=== PATIENT | female | born 1980 | race Caucasian/White ===

== ENCOUNTER 2017-04-23 00:02 | Emergency (ER) | payer OTHER ==
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
[2017-04-23] MEDS ORDERED: MORPHINE SULFATE 4 MG INJ IV ONE (00:18)
[2017-04-23] MEDS ORDERED: TORAdol 30 mg Injection IV ONE (00:18)
[2017-04-23] MEDS ORDERED: BENADRYL 50 MG/ML IV ONE (00:18)
[2017-04-23] MEDS ORDERED: Sodium Chloride 0.9% 1000 ML 1,000 ML IV SCH (00:30)
[2017-04-23] MEDS ORDERED: MORPHINE SULFATE 4 MG INJ ONE (00:34)
[2017-04-23] MEDS ORDERED: TORAdol 30 mg Injection ONE (00:34)
[2017-04-23] MEDS ORDERED: BENADRYL 50 MG/ML ONE (00:34)
[2017-04-23] MEDS ORDERED: Sodium Chloride 0.9% 1000 ML 1,000 ML ONE (00:34)
[2017-04-23 02:14] VITALS: BP 93/48; PULSE 76; O2SAT 96
--- NOTE | 2017-04-23 08:37 | XRAY ---
Indication: Headache and left parietal swelling following fall. Multiple contiguous axial images obtained through the head without contrast. Comparison: October 19, 2015. Again normal appearing brain parenchyma, ventricles, and bony calvarium. Visualized paranasal sinuses and mastoid air cells are pneumatized and clear. Impression: Stable normal CT head without contrast exam. Comment: Preliminary interpretation was made by [facility]. No discrepancy. CT DI 50.00
--- NOTE | 2017-04-23 08:39 | XRAY ---
Indication: Pain following fall. Comparison: June 12, 2016. 2 views of the left lower leg unchanged again demonstrating old distal fibular fracture with intact orthopedic hardware. No new/acute bony, articular, or soft tissue abnormalities.
--- NOTE | 2017-04-23 08:41 | XRAY ---
Indication: Pain following fall. Comparison: None 3 nonweightbearing views of the left foot demonstrates mild osteopenia, medial/lateral tarsal accessory ossicles, tiny posterior heel spur, and partially visualized old distal fibular fracture with orthopedic hardware. No other bony, articular, or soft tissue abnormalities.
== END 2017-04-23 02:14 | disposition home or self-care (01) ==
LOC: ED 00:02
DX: S00.93XA Contusion of unspecified part of head, initial encounter (principal); M25.572 Pain in left ankle and joints of left foot; W22.8XXA Striking against or struck by other objects, initial encounter; Y04.0XXA Assault by unarmed brawl or fight, initial encounter
CPT/HCPCS: 36000; 70450; 73590; 73630; 96360; 96361; 96374; 96375; 99284; J1200; J1885; J2270

== ENCOUNTER 2019-05-18 00:02 | Emergency (ER) | payer OTHER ==
[2019-05-18 00:30] VITALS: O2SAT 97
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
[2019-05-18] MEDS ORDERED: CLEOCIN 150 MG CAPSULE ONE (01:06)
[2019-05-18] MEDS: CLEOCIN 150 MG CAPSULE PO ONE (01:08)
[2019-05-18 01:41] VITALS: BP 99/75; PULSE 90
== END 2019-05-18 01:30 | disposition home or self-care (01) ==
LOC: ED 00:02
DX: M54.6 Pain in thoracic spine (principal); Z96.89 Presence of other specified functional implants; Z98.890 Other specified postprocedural states
CPT/HCPCS: 99283; A9270-GY

== ENCOUNTER 2019-11-23 13:12 | Emergency (ER) | payer OTHER ==
[2019-11-23] MEDS ORDERED: Hydromorphone 1 mg/ml Ampule IM ONE (13:16)
[2019-11-23] MEDS ORDERED: Hydromorphone 1 mg/ml Ampule ONE ×2 (13:18→13:57)
[2019-11-23] MEDS ORDERED: Ativan 2 MG/1 ML VIAL IM ONE (13:39)
[2019-11-23] MEDS ORDERED: Ativan 2 MG/1 ML VIAL IV ONE (13:50)
[2019-11-23] MEDS ORDERED: Ativan 2 MG/1 ML VIAL ONE (13:52)
[2019-11-23] MEDS ORDERED: Hydromorphone 1 mg/ml Ampule IV ONE (13:53)
[2019-11-23 14:34] VITALS: O2SAT 96
[2019-11-23] MEDS ORDERED: SILVADENE 50 GM TP ONE (14:35)
[2019-11-23] MEDS ORDERED: BACIGUENT PACKET ONE (14:42)
--- NOTE | 2019-11-23 14:42 | ERPHSYRPT ---
- History of Present Illness Time Seen by Provider: 11/23/19 13:25 Exam Limitations: no limitations Patient Subjective Stated Complaint: PT states "I was at work and a pot of beef broth fell onto my arm." Triage Nursing Assessment: Pt presented alert and oriented X 3, skin wpd. PT ambulates with her left arm held out and moaning. PT has superficial burn to left arm from elbow to fingers on dorsal side. Physician History: Burned L forearm with hot broth in hospitat kitchen Timing/Duration: today Quality: burning Severity: severe Location: extremities (L forearm small area on abdomen) Possible Causes: no cause identified Allergies/Adverse Reactions: amoxicillin [Amoxicillin] Allergy (Verified 04/23/17 00:04) HIVES azithromycin [From Zithromax Z-Leon] Allergy (Verified 04/23/17 00:04) palpitations, dyspnea cefaclor [From Ceclor] Allergy (Verified 04/23/17 00:04) palpitations, rash, dyspnea Penicillins Allergy (Verified 04/23/17 00:04) Sulfa (Sulfonamide Antibiotics) [Sulfa(Sulfonamide Antibiotics)] Allergy ( Verified 04/23/17 00:04) palpitations, rash, dyspnea Home Medications: Amlodipine Besylate [Norvasc] 5 mg PO DAILY 06/24/15 [History] Duloxetine HCl [Cymbalta] 60 mg PO DAILY 04/23/17 [History] Pregabalin [Lyrica 150Mg] 1 tab PO BID 04/23/17 [History] Hx Tetanus, Diphtheria Vaccination/Date Given: Yes Hx Influenza Vaccination/Date Given: Yes Hx Pneumococcal Vaccination/Date Given: No Immunizations Up to Date: Yes - Review of Systems Constitutional: No Fever, No Chills Eyes: No Symptoms Ears, Nose, & Throat: No Symptoms Respiratory: No Cough, No Dyspnea Cardiac: No Chest Pain, No Edema, No Syncope Abdominal/Gastrointestinal: No Abdominal Pain, No Nausea, No Vomiting, No Diarrhea Genitourinary Symptoms: No Dysuria Musculoskeletal: No Back Pain, No Neck Pain Skin: Other (First degree burn L forearm and small area on abdomen), No Rash Neurological: No Dizziness, No Focal Weakness, No Sensory Changes Psychological: No Symptoms Endocrine: No Symptoms All Other Systems: Reviewed and Negative - Past Medical History Pertinent Past Medical History: Yes Neurological History: Migraines, Other ENT History: No Pertinent History Cardiac History: Hypertension Respiratory History: No Pertinent History Endocrine Medical History: No Pertinent History Musculoskeletal History: No Pertinent History GI Medical History: Gallbladder Disease, Irritable Bowel History: No Pertinent History Psycho-Social History: Anxiety, Depression Female Reproductive Disorders: No Pertinent History Other Medical History: L ankle fracture 2010, L ankle surgery 09/2016, R AC decompression., back pain - Past Surgical History Past Surgical History: Yes Neuro Surgical History: No Pertinent History Cardiac: No Pertinent History Respiratory: No Pertinent History Gastrointestinal: Appendectomy, Cholecystectomy Genitourinary: No Pertinent History Musculoskeletal: Orthopedic Surgery, Other Female Surgical History: Section Other Surgical History: broken left ankle repair with ortho ashley has 9 scew noted. Pt states the AC joint was compressed et she has had part of her collar bone removed due to a work injury in the past. neurostimulator placement 04/21/19 , vertebrae removed, nerves burnt and clipped in left leg. - Social History Smoking Status: Current every day smoker How long have you smoked: years Exposure to second hand smoke: Yes Drug Use: none Patient Lives Alone: No - Female History Hx Last Menstrual Period: 08/22/2019 Hx Now: (un known) - Nursing Vital Signs Nursing Vital Signs: Initial Vital Signs Temperature 98.7 F 11/23/19 13:18 Pulse Rate 104 H 11/23/19 13:18 Respiratory Rate 24 11/23/19 13:18 Blood Pressure 173/107 11/23/19 13:18 O2 Sat by Pulse Oximetry 98 11/23/19 13:18 Pain Scale Pain Intensity 7 - Physical Exam General Appearance: moderate distress, alert Eye Exam: PERRL/EOMI, eyes nml inspection Ears, Nose, Throat Exam: normal ENT inspection, pharynx normal, moist mucous membranes Neck Exam: normal inspection, non-tender, supple, full range of motion Respiratory Exam: normal breath sounds, lungs clear, No respiratory distress Cardiovascular Exam: regular rate/rhythm, normal heart sounds Gastrointestinal/Abdomen Exam: soft, mass, No tenderness Back Exam: normal inspection, normal range of motion, No CVA tenderness, No vertebral tenderness Extremity Exam: normal inspection, normal range of motion Neurologic Exam: alert, oriented x 3, cooperative, normal mood/affect, sensation nml, No motor deficits Skin Exam: other (First degree burn L forearm and small area of abdomen) Lymphatic Exam: No adenopathy SpO2 Interpretation: normal SpO2: 96 O2 Delivery: Room Air - Course Nursing assessment & vital signs reviewed: Yes Ordered Tests: Active Orders 24 hr Category Date Time Status IV Insertion STAT Care 11/23/19 13:50 Active Medication Summary Discontinued Medications Generic Name Dose Route Start Last Admin Trade Name Freq PRN Reason Stop Dose Admin Hydromorphone HCl 1 mg 11/23/19 13:16 11/23/19 13:21 Hydromorphone 1 Mg/Ml Ampule IM 11/23/19 13:17 1 mg STAT ONE Administration Hydromorphone HCl Confirm 11/23/19 13:18 Hydromorphone 1 Mg/Ml Ampule Administered 11/23/19 13:19 Dose 1 mg .ROUTE .STK-MED ONE Hydromorphone HCl 1 mg 11/23/19 13:53 11/23/19 13:58 Hydromorphone 1 Mg/Ml Ampule IV 11/23/19 13:54 1 mg STAT ONE Administration Hydromorphone HCl Confirm 11/23/19 13:57 Hydromorphone 1 Mg/Ml Ampule Administered 11/23/19 13:58 Dose 1 mg .ROUTE .STK-MED ONE Lorazepam 1 mg 11/23/19 13:39 11/23/19 13:51 Ativan 2 Mg/1 Ml Vial IM 11/23/19 13:40 Not Given STAT ONE Lorazepam 1 mg 11/23/19 13:50 11/23/19 13:54 Ativan 2 Mg/1 Ml Vial IV 11/23/19 13:51 1 mg STAT ONE Administration Lorazepam Confirm 11/23/19 13:52 Ativan 2 Mg/1 Ml Vial Administered 11/23/19 13:53 Dose 2 mg .ROUTE .STK-MED ONE - Progress Progress: improved - Departure Departure Disposition: Home Clinical Impression: Partial thickness burn of abdominal wall, Partial thickness burn of forearm Condition: Stable Critical Care Time: No Referrals: BAILEY MARISCAL MD [Primary Care Provider] - Instructions: Skin Fair Prescriptions: Hydrocodone/APAP 10/325 mg [Lexa 10/325 MG Tablet] 1 tab PO Q4H PRN PRN 3 Days #10 tablet MDD 6 PRN Reason: Pain
[2019-11-23] MEDS ORDERED: BACIGUENT PACKET TP ONE (14:46)
[2019-11-23 15:08] VITALS: BP 136/80; PULSE 96
== END 2019-11-23 15:17 | disposition home or self-care (01) ==
LOC: ED 13:12
DX: T21.22XA Burn of second degree of abdominal wall, initial encounter (principal); T22.212A Burn of second degree of left forearm, initial encounter; X12.XXXA Contact with other hot fluids, initial encounter; Y93.G3 Activity, cooking and baking; Y92.9 Unspecified place or not applicable
CPT/HCPCS: 36000; 96372; 96374; 96375; 96376; 99284; J1170; J2060; A9270-GY

== ENCOUNTER 2021-07-05 21:38 | Emergency (ER) | payer BC, OTHER ==
[2012-07-13 08:03] VITALS: BP 112/57
== END 2021-07-05 23:30 | disposition left against medical advice (07) ==
LOC: ED 21:38
DX: Z53.9 Procedure and treatment not carried out, unspecified reason (principal)

== ENCOUNTER 2021-08-17 18:20 | Emergency (ER) | payer OTHER ==
--- NOTE | 2021-08-17 19:54 | ERPHSYRPT ---
- History of Present Illness Time Seen by Provider: 08/17/21 19:54 Source: patient Exam Limitations: no limitations Physician History: This is a 41-year-old white female who has had recurrent ear infections in the past. She has right ear pain that is been present for 2 to 3 weeks. Initially she was on Cipro antibiotic and oral steroids. This did not cure her symptoms and she is on Z-Leon with 1 more day of antibiotic. In the last 2 days her right ear pain was worsening. She has not addressed her symptoms with Dr. Mariscal. She has not seen an research lab assistant. She is only been using [facility] in the last 2 to 3 weeks. Timing/Duration: days Severity: mild ENT Location: ear (R) (To moderate) Prearrival Treatment: over the counter meds, prescription meds Associated Symptoms: ear pain (R) Allergies/Adverse Reactions: amoxicillin [Amoxicillin] Allergy (Verified 08/17/21 19:46) HIVES cefaclor [From Ceclor] Allergy (Verified 08/17/21 19:46) palpitations, rash, dyspnea Penicillins Allergy (Verified 08/17/21 19:46) Sulfa (Sulfonamide Antibiotics) [Sulfa(Sulfonamide Antibiotics)] Allergy (Verified 08/17/21 19:46) palpitations, rash, dyspnea Home Medications: Amlodipine Besylate 5 mg PO DAILY 08/17/21 [History] Azithromycin 250 mg [Zithromax 250 MG TABLET] 250 mg PO DAILY 08/17/21 [History] Gabapentin [Neurontin] 300 mg PO BID 08/17/21 [History] Metformin HCl 500 mg PO HS 08/17/21 [History] Norethindrone-E.estradiol-Iron [Junel Fe 1.5 mg-30 Mcg Tablet] 1 each PO DAILY 08/17/21 [History] Rizatriptan Benzoate [Rizatriptan] 10 mg PO DAILY 08/17/21 [History] Venlafaxine HCl ER 75 mg [Effexor XR 75 MG] 75 mg PO DAILY 08/17/21 [History] Hx Tetanus, Diphtheria Vaccination/Date Given: Yes Hx Influenza Vaccination/Date Given: Yes Hx Pneumococcal Vaccination/Date Given: No Travel Risk - International Travel Have you traveled outside of the country in past 3 weeks: No - Coronavirus Screening Are you exhibiting any of the following symptoms?: No Close contact with a COVID-19 positive Pt in past 14-21 Days: No - Review of Systems Constitutional: No Symptoms Eyes: No Symptoms Ears, Nose, & Throat: Ear Pain (Right) Respiratory: No Symptoms Cardiac: No Symptoms Abdominal/Gastrointestinal: No Symptoms Genitourinary Symptoms: No Symptoms Musculoskeletal: No Symptoms Skin: No Symptoms Neurological: No Symptoms Psychological: No Symptoms Endocrine: No Symptoms Hematologic/Lymphatic: No Symptoms Immunological/Allergic: No Symptoms All Other Systems: Reviewed and Negative - Past Medical History Pertinent Past Medical History: Yes Neurological History: Migraines, Other ENT History: No Pertinent History Cardiac History: Hypertension Respiratory History: No Pertinent History Endocrine Medical History: No Pertinent History Musculoskeletal History: No Pertinent History GI Medical History: Gallbladder Disease, Irritable Bowel History: No Pertinent History Psycho-Social History: Anxiety, Depression Female Reproductive Disorders: No Pertinent History Other Medical History: L ankle fracture 2010, L ankle surgery 09/2016, R AC decompression., back pain - Past Surgical History Past Surgical History: Yes Neuro Surgical History: No Pertinent History Cardiac: No Pertinent History Respiratory: No Pertinent History Gastrointestinal: Appendectomy, Cholecystectomy Genitourinary: No Pertinent History Musculoskeletal: Orthopedic Surgery, Other Female Surgical History: Section Other Surgical History: broken left ankle repair with ortho ashley has 9 scew noted. Pt states the AC joint was compressed et she has had part of her collar bone removed due to a work injury in the past. neurostimulator placement 04/21/19, vertebrae removed, nerves burnt and clipped in left leg. - Social History Smoking Status: Current every day smoker How long have you smoked: years Exposure to second hand smoke: Yes Drug Use: none Patient Lives Alone: No - Nursing Vital Signs Nursing Vital Signs: Initial Vital Signs Temperature 98.6 F 08/17/21 19:46 Pulse Rate 111 H 08/17/21 19:46 Respiratory Rate 22 08/17/21 19:46 Blood Pressure 184/103 08/17/21 19:46 O2 Sat by Pulse Oximetry 97 08/17/21 19:46 Pain Scale Pain Intensity 8 - Physical Exam General Appearance: mild distress, alert, anxiety, obese Eye Exam: bilateral eye: normal inspection, PERRL, EOMI Ear Exam: right ear: tenderness (Right side), bilateral ear: auricle normal, canal normal, TM normal Nasal Exam: normal inspection Throat Exam: normal, pharynx normal Neck Exam: normal inspection, non-tender, supple, full range of motion Cardiovascular/Respiratory Exam: chest non-tender, no respiratory distress Abdominal Exam: non-tender Neurologic Exam: alert, oriented x 3, cooperative, endodontist II-XII nml as tested, normal mood/affect, nml cerebellar function, nml station & gait, sensation nml Skin Exam: normal color, warm, dry SpO2 Interpretation: normal O2 Delivery: Room Air - Course Nursing assessment & vital signs reviewed: Yes Ordered Tests: Medication Summary Discontinued Medications Generic Name Dose Route Start Last Admin Trade Name Philomena PRN Reason Stop Dose Admin Methylprednisolone Sodium 0 mg 08/17/21 20:19 08/17/21 20:36 Succinate 125 mg/ Sterile IM 08/17/21 20:20 125 mg Water 2 ml STAT ONE Administration Methylprednisolone Sodium Succinate Confirm 08/17/21 20:34 Methylprednis Sod Succ 125 Mg/2 Ml Vial Administered 08/17/21 20:35 Dose 125 mg .ROUTE .STK-MED ONE Oxycodone/Acetaminophen 1 tab 08/17/21 20:18 08/17/21 20:36 Oxycodone Hcl/Apap 5 Mg/325 Mg Tablet PO 08/17/21 20:19 1 tab STAT STA Administration Oxycodone/Acetaminophen 2 tab 08/17/21 20:19 08/17/21 20:36 Oxycodone Hcl/Apap 5 Mg/325 Mg Tablet PO 08/17/21 20:20 2 tab SENT HOME W/ PATIENT STA Administration Oxycodone/Acetaminophen Confirm 08/17/21 20:34 Oxycodone Hcl/Apap 5 Mg/325 Mg Tablet Administered 08/17/21 20:35 Dose 3 tab .ROUTE .STK-MED ONE Sterile Water Confirm 08/17/21 20:35 Water For Injection,Sterile 10 Ml Vial Administered 08/17/21 20:36 Dose 10 ml IJ .STK-MED ONE - Progress Progress: improved, pain not gone completely Progress Note: 08/17/21 20:44 Apparently, the patient was upset when talking to the nurse after I evaluated her. Although the patient stated I never called her a drug addict she did say that she felt I hinted at it when I asked her if she was on hydrocodone. On her profile there was 3 separate hydrocodone type medications and I was unsure whether this was updated and that is why I asked her about it. She did not peer or express any frustration or anger when I was in the room. In fact, I told her if I did not think she was in pain I would not have given her Percocet here in the emergency department and take home Percocet medication. 08/17/21 20:46 Medical decision making: This patient's right tympanic membrane does not show any bulging or evidence of redness or infection. The ear canal may be slightly more red on the right than the left. The tympanic membranes on both side are similar. The patient's repeat/second systolic blood pressure was in the 140s. I told her that she should continue her Z-Leon and then follow-up with Dr. Mariscal tomorrow to make arrangements for evaluation by him and possible referral to research lab assistant. I will provide her another round of short course of steroids. Counseled pt/family regarding: diagnosis, need for follow-up - Departure Departure Disposition: Home Clinical Impression: Chronic right ear pain Condition: Stable Critical Care Time: No Referrals: BAILEY MARISCAL MD [Primary Care Provider] - Additional Instructions: Take your medication as prescribed. Call Dr. Mariscal's office tomorrow to make arrange for follow-up appointment with him and possible referral to research lab assistant for further evaluation of your chronic right ear pain. Prescriptions: Prednisone 10 mg [Deltasone 10 mg] 10 mg PO TID #12 tablet
[2021-08-17] MEDS ORDERED: PERCOCET TABLET 5/325MG PO STA ×2 (20:18→20:19)
[2021-08-17] MEDS ORDERED: solu-MEDROL 125 MG, Sterile H2O 10 ml 2 ML IM ONE ×2 (20:19)
[2021-08-17] MEDS ORDERED: PERCOCET TABLET 5/325MG ONE (20:34)
[2021-08-17] MEDS ORDERED: solu-MEDROL ONE (20:34)
[2021-08-17] MEDS ORDERED: Sterile H2O 10 ml IJ ONE (20:35)
[2021-08-17 20:59] VITALS: BP 164/93; PULSE 97; O2SAT 97
== END 2021-08-17 21:05 | disposition home or self-care (01) ==
LOC: ED 18:20
DX: H91.01 Ototoxic hearing loss, right ear (principal)
CPT/HCPCS: 96372; 99283; J2930; A9270-GY

== ENCOUNTER 2023-03-09 20:24 | Emergency (ER) | payer OTHER ==
--- NOTE | 2023-03-09 20:29 | ERPHSYRPT ---
- History of Present Illness Time Seen by Provider: 03/09/23 20:28 Source: patient Exam Limitations: no limitations Physician History: This is a 43-year-old white female patient of Dr. Mariscal who presents with 2-week history of right upper molar dental pain. Over the last 2 weeks she has had her antibiotics changed and recently has an increase in her dosing. However, the patient has a gingival abscess right upper molar. Patient has a dentist appointment on 03/12/2023. Patient is allergic to hydrocodone but has taken Percocet in the past. She is allergic to penicillin and cefaclor. She is currently taking clindamycin. Patient is a daily smoker of cigarettes. Patient has a history of hypertension, diabetes, migraine headaches, peripheral neuropathy and asthma. Timing/Duration: week(s) (2), worse Severity: moderate Modifying Factors: Improves With: nothing Associated Symptoms: denies symptoms Allergies/Adverse Reactions: amoxicillin [Amoxicillin] Allergy (Verified 03/09/23 20:30) HIVES cefaclor [From Ceclor] Allergy (Verified 03/09/23 20:30) palpitations, rash, dyspnea hydrocodone Allergy (Verified 03/09/23 20:30) Blisters Penicillins Allergy (Verified 03/09/23 20:30) Sulfa (Sulfonamide Antibiotics) [Sulfa(Sulfonamide Antibiotics)] Allergy (Verified 03/09/23 20:30) palpitations, rash, dyspnea Home Medications: Amlodipine Besylate 5 mg PO DAILY 08/17/21 [History] Metformin HCl 500 mg PO HS 08/17/21 [History] Venlafaxine HCl ER 75 mg [Effexor XR 75 MG] 75 mg PO DAILY 08/17/21 [History] norethindrone-e.estradioL-iron [Junel Fe 1.5 mg-30 Mcg Tablet] 1 each PO DAILY 08/17/21 [History] Albuterol 8 gm Mdi Hfa [Ventolin Hfa MDI] 8 gm IH Q4HPRN PRN 03/09/23 [History] Atogepant [Qulipta] 60 mg PO DAILY 03/09/23 [History] Buspirone HCl 5 mg [Buspar 5 mg] 15 mg PO DAILY 03/09/23 [History] Cetirizine HCl [Zyrtec] 10 mg PO DAILY 03/09/23 [History] Montelukast Sodium 10 mg [Singulair 10 MG] 10 mg PO DAILY 03/09/23 [History] Propranolol HCl [Inderal Xl] 80 mg PO DAILY 03/09/23 [History] Pyridoxine HCl (Vitamin B6) [Vitamin B-6] 100 mg PO DAILY 03/09/23 [History] Tizanidine HCl 2 mg PO DAILY 03/09/23 [History] Trazodone HCl 50 mg [Desyrel 50 mg] 50 mg PO HS PRN 03/09/23 [History] clindamycin HCL [Clindamycin HCl] 300 mg PO TID 03/09/23 [History] lamoTRIgine [Lamictal] 25 mg PO BID 03/09/23 [History] Hx Tetanus, Diphtheria Vaccination/Date Given: Yes Hx Influenza Vaccination/Date Given: Yes Hx Pneumococcal Vaccination/Date Given: No Travel Risk - International Travel Have you traveled outside of the country in past 3 weeks: No - Coronavirus Screening Are you exhibiting any of the following symptoms?: No Close contact with a COVID-19 positive Pt in past 14-21 Days: No - Vaccine Status Have you recieved a Covid-19 vaccination: No - Review of Systems Constitutional: No Symptoms Eyes: No Symptoms Ears, Nose, & Throat: Other (Gingival abscess right upper molar lateral aspect) Respiratory: No Symptoms Cardiac: No Symptoms Abdominal/Gastrointestinal: No Symptoms Genitourinary Symptoms: No Symptoms Musculoskeletal: No Symptoms Skin: No Symptoms Neurological: No Symptoms Psychological: No Symptoms Endocrine: No Symptoms Hematologic/Lymphatic: No Symptoms Immunological/Allergic: No Symptoms All Other Systems: Reviewed and Negative - Past Medical History Pertinent Past Medical History: Yes Neurological History: Migraines, Peripheral Neuropathy ENT History: No Pertinent History Cardiac History: Hypertension Respiratory History: Asthma, Sleep Apnea Endocrine Medical History: No Pertinent History Musculoskeletal History: No Pertinent History GI Medical History: Gallbladder Disease, Irritable Bowel History: No Pertinent History Psycho-Social History: Anxiety, Depression Female Reproductive Disorders: No Pertinent History Other Medical History: DECEMBER 28 AND APRIL 18 WERE SURGERY DATES. WHITE BLOOD CELLS HIGH, HAVING AN GENERATOR TECHNICIAN CHECK HER LUNGS. PATIENT HAS NUMBNESS IN THE L HAND UP TO FOREARM. PREDIABETIC. INTERNAL TENS FOR L LE PAIN. - Past Surgical History Past Surgical History: Yes Neuro Surgical History: No Pertinent History Cardiac: No Pertinent History Respiratory: No Pertinent History Gastrointestinal: Appendectomy, Cholecystectomy Genitourinary: No Pertinent History Musculoskeletal: Orthopedic Surgery, Other Female Surgical History: Section Other Surgical History: broken left ankle repair with ortho ashley has 9 scew noted. Pt states the AC joint was compressed et she has had part of her collar bone removed due to a work injury in the past. neurostimulator placement 04/21/19, vertebrae removed, nerves burnt and clipped in left leg. - Social History Smoking Status: Current every day smoker How long have you smoked: years Exposure to second hand smoke: Yes Drug Use: none Patient Lives Alone: No - Nursing Vital Signs Nursing Vital Signs: Initial Vital Signs Pulse Rate 101 H 03/09/23 20:29 Blood Pressure 116/83 03/09/23 20:29 O2 Sat by Pulse Oximetry 97 03/09/23 20:29 Pain Scale Pain Intensity 10 - Physical Exam General Appearance: mild distress, alert, anxiety, obese Eye Exam: PERRL/EOMI, eyes nml inspection Ears, Nose, Throat Exam: moist mucous membranes, other (Gingival abscess lateral aspect right upper molar.) Neck Exam: normal inspection, non-tender, supple, full range of motion Respiratory Exam: airway intact, No chest tenderness, No respiratory distress Cardiovascular Exam: regular rate/rhythm, normal heart sounds, normal peripheral pulses Gastrointestinal/Abdomen Exam: No tenderness Pelvic Exam: not done Rectal Exam: not done Back Exam: normal inspection, normal range of motion, No CVA tenderness, No vertebral tenderness Extremity Exam: normal inspection, normal range of motion, pelvis stable Neurologic Exam: alert, oriented x 3, cooperative, enterprise analyst II-XII nml as tested, normal mood/affect, nml cerebellar function, nml station & gait, sensation nml Skin Exam: normal color, warm, dry Lymphatic Exam: No adenopathy SpO2 Interpretation: normal O2 Delivery: Room Air Procedures - Incision and Drainage Time of Procedure: 21:05 Site: Right upper lateral gingival abscessoral cavity Anesthesia: 1% Lidocaine cc's of anesthesia: 1 Blade Size: other (Edge of an 18-gauge needle) Results: small amount pus (To moderate) Progress: Patient states that the pain and pressure have significantly improved after incision and drainage of the pus that was present in the gingival abscess. - Course Nursing assessment & vital signs reviewed: Yes Ordered Tests: Medication Summary Discontinued Medications Generic Name Dose Route Start Last Admin Trade Name Philomena PRN Reason Stop Dose Admin Oxycodone/Acetaminophen 1 tab 03/09/23 21:07 Oxycodone Hcl/Apap 5 Mg/325 Mg Tablet PO 03/09/23 21:08 STAT STA Oxycodone/Acetaminophen 2 tab 03/09/23 21:08 Oxycodone Hcl/Apap 5 Mg/325 Mg Tablet PO 03/09/23 21:09 SENT HOME W/ PATIENT STA - Progress Progress: improved Progress Note: 03/09/23 21:15 This patient's medical issue is of low to moderate complexity. The patient has a known dental caries and in the last couple of days she has noticed an enlarging abscess in the gumline right upper molars laterally. Patient has not had fever. Counseled pt/family regarding: diagnosis, need for follow-up Medical Desision Making - Independent Historian Additional History obtained from: Family (Sister) - Diagnostic Testing Diagnostic test were ordered, analyzed, and reviewed by me: No - Risk of complications Minimal Risk: Minimal risk of morbidity - Departure Departure Disposition: Home Clinical Impression: Abscess of upper gingiva Condition: Stable Critical Care Time: No Referrals: BAILEY MARISCAL MD [Primary Care Provider] - Follow up/PCP as directed Additional Instructions: Compress the area that was incised and drained 2-3 times a day. Rinse your mouth out 2-3 times a day after compressing the area, with Listerine or other oral antiseptic dental liquid. Keep your appointment with your dentist on 03/12/2023. Continue your antibiotics as prescribed.
[2023-03-09] MEDS ORDERED: PERCOCET TABLET 5/325MG PO STA ×2 (21:07→21:08)
[2023-03-09] MEDS ORDERED: PERCOCET TABLET 5/325MG ONE (21:14)
[2023-03-09 21:25] VITALS: BP 157/85
[2023-03-09 21:32] VITALS: PULSE 106; O2SAT 94
== END 2023-03-09 21:28 | disposition home or self-care (01) ==
LOC: ED 20:24
DX: K05.20 Aggressive periodontitis, unspecified (principal); K08.89 Other specified disorders of teeth and supporting structures; I10 Essential (primary) hypertension; E11.42 Type 2 diabetes mellitus with diabetic polyneuropathy; Z79.84 Long term (current) use of oral hypoglycemic drugs; Z79.899 Other long term (current) drug therapy; Z28.310 Unvaccinated for COVID-19; Z72.0 Tobacco use
CPT/HCPCS: 41800; 99282; A9270-GY

== ENCOUNTER 2024-06-14 22:56 | Emergency (ER) | payer MEDICAID, OTHER ==
[2024-06-14 23:09] VITALS: RESP 18; TEMP 96.4
[2024-06-14] MEDS ORDERED: TORAdol 30 mg Injection ONE (23:28)
[2024-06-14] MEDS ORDERED: Reglan 10 MG/2 ML ONE (23:28)
[2024-06-14] MEDS ORDERED: Sodium Chloride 0.9% 1000 ML 1,000 ML ONE (23:28)
[2024-06-14] MEDS ORDERED: BENADRYL 50 MG/ML ONE (23:28)
[2024-06-14] MEDS ORDERED: TYLENOL 325 MG ONE (23:29)
[2024-06-14] MEDS: Reglan 10 MG/2 ML IV ONE (23:30)
[2024-06-14] MEDS: TYLENOL 325 MG PO ONE (23:30)
[2024-06-14] MEDS: Sodium Chloride 0.9% 1000 ML 1,000 ML IV STA (23:32)
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
[2024-06-14] MEDS: TORAdol 30 mg Injection IV ONE (23:35)
[2024-06-14] MEDS: BENADRYL 50 MG/ML IV ONE (23:35)
[2024-06-15 00:46] VITALS: BP 117/74; PULSE 94; O2SAT 99
== END 2024-06-15 00:46 | disposition home or self-care (01) ==
LOC: ED 22:56
DX: G43.909 Migraine, unspecified, not intractable, without status migrainosus (principal); R11.2 Nausea with vomiting, unspecified; I10 Essential (primary) hypertension; Z79.84 Long term (current) use of oral hypoglycemic drugs; Z79.899 Other long term (current) drug therapy; Z72.0 Tobacco use
CPT/HCPCS: 36000; 96374; 99285; J1200; J1885; A9270-GY